=== PATIENT | male | born 1980 | race Two or more races ===

== ENCOUNTER 2017-03-28 19:11 | Inpatient (IN) | payer OTHER ==
[~2017-03-28] VITALS: Ht 175.3 cm; Wt 64.0 kg
--- NOTE | 2017-03-28 20:45 | NUR ---
KNOTTING MACHINE OPERATOR PORTABLE NOTES RECEIVED PATIENT DIRECT ADMIT FROM [facility], TRANSFERRED TO ROOM 105, TOLERATED TRANSFER WELL. SKIN IS INTACT. BREATHING EVEN AND NONLABORED, ON O2 VIA NC @ 2LPM, TOLERATING WELL, FREE FROM ANY S/S OF OF RESPIRATORY DISTRESS. NOTED WITH RIGHT SIDED KEYA-CLOSE BRAND CHEST TUBE, CLAMPED AT THIS TIME. PLACED ON TELEMETRY MONITORING, REVEALING SINUS RHYTHM. IV SITE PATENT AND INTACT, FLUSHED WITH NS, FREE FROM ANY S/S OF INFILTRATION OR PHLEBITIS. PLAN OF CARE DISCUSSED WITH THE PATIENT WHO VERBALIZES UNDERSTANDING. CALL LIGHT LEFT WITHIN EASY REACH, BED IN LOWEST AND LOCKED POSITION.
[2017-03-28] MEDS ORDERED: MORPHINE SULFATE INJ 4 MG/ML DISP.SYRIN ONE (21:34)
[2017-03-28] MEDS: MORPHINE SULFATE INJ 2 MG/ML DISP.SYRIN IV PRN (21:37)
--- NOTE | 2017-03-28 21:42 | NUR ---
RN NOTES MORPHINE 2MG OUT OF STOCK, OVERRIDE PERFORMED BY CHARGE NURSE OG
--- NOTE | 2017-03-28 22:15 | NUR ---
RN NOTES DR BROWN WITH ORDERS TO CONNECT CHEST TUBE TO LOW INTERMITTENT SUCTION. PATIENT NOTED WITH KEYA-CLOSE CHEST TUBE SYSTEM, INADEQUATE SUPPLIES HERE AT [place] TO CONNECT PATIENT TO SUCTION. DR BROWN MADE AWARE, WITH NEW ORDER FOR STAT CXR TO EVALUATE NEED FOR FURTHER CHEST TUBE SUCTION
[2017-03-28] MEDS ORDERED: ZOLPIDEM TARTRATE 5 MG TABLET PO PRN (22:30)
[2017-03-28] MEDS ORDERED: ACETAMINOPHEN 325 MG TABLET PO PRN (22:30)
[2017-03-28] MEDS ORDERED: Z GUARD REMEDY 2 OZ OINT TP PRN (22:30)
--- NOTE | 2017-03-28 23:15 | NUR ---
RN NOTES CXR RESULTS RELAYED TO [facility] [place] RECEIVED. MD ALSO MADE AWARE THAT WHEN PATIENT IS ASLEEP, HIS HR GOES LOW 46BPM. WILL CONTINUE TO CLOSELY MONITOR THE PATIENT
[2017-03-29] VITALS: BP 128/69
[2017-03-29] MEDS ORDERED: MORPHINE SULFATE INJ 4 MG/ML DISP.SYRIN ONE ×2 (01:20→07:06)
[2017-03-29] MEDS: MORPHINE SULFATE INJ 2 MG/ML DISP.SYRIN IV PRN (01:23)
[2017-03-29 04:00] VITALS: BP 102/70
[2017-03-29 04:41] LABS: BASOPHILS % (AUTO) 0.3 % (0.0-2.0); EOSINOPHILS % (AUTO) 0.4 % (0.0-6.0); HEMATOCRIT 47 % (39-51); HEMOGLOBIN 15.7 g/dL (13.5-17.5); MEAN CORPUSCULAR HEMOGLOBIN 31 PG (26.0-33.0); MEAN CORPUSCULAR HGB CONC 34 g/dl (31.0-36.0); MEAN CORPUSCULAR VOLUME 93 fL (80-96); MONOCYTES # (AUTO) 0.5 /CMM (0.1-1.30); MONOCYTES % (AUTO) 6.1 % (2.0-12.0); NEUTROPHILS # (AUTO) 5.4 /CMM (1.8-8.9); NEUTROPHILS % (AUTO) 68.2 % (43.0-81.0); PLATELET COUNT (AUTO) 256 /CMM (150-450); RDW COEFFICIENT OF VARIATION 12.8 (11.5-15.0); RED BLOOD CELL COUNT(AUTO) 4.99 MIL/uL (4.5-6.0); WHITE BLOOD COUNT (AUTO) 7.9 K/uL (4.3-11.0)
[2017-03-29 05:10] LABS: ALBUMIN 3.9 g/dL (3.4-5.0); BILIRUBIN,TOTAL 1.2 mg/dL (0.2-1.0); CALCIUM, SERUM 8.7 mg/dL (8.5-10.1); CREATININE 0.9 mg/dL (0.6-1.3); MAGNESIUM 2.1 mg/dL (1.8-2.4); PHOSPHORUS 3.8 mg/dL (2.5-4.9); POTASSIUM 4.7 mmol/L (3.5-5.1); TOTAL PROTEIN, SERUM 6.9 g/dL (6.4-8.2)
[2017-03-29] MEDS ORDERED: MORPHINE SULFATE INJ 10 MG/ML DISP.SYRIN IV PRN ×2 (07:30→12:00)
--- NOTE | 2017-03-29 07:53 | NUR ---
YARDER PUNCHER NOTE RECEIVED PATIENT IN THE BED, PT IS ALERT AND AWAKE, ORIENTED X 4, NO SOB, ON ROOM AIR, SKIN IS WARM/DRY, NO S/S OF PAIN NOTED, NO CHEST PAIN. PERIPHERAL IV ON THE RIGHT HAND, FLUSHING WELL, IV SITE IS INTACT, NEEDS ATTENDED, KEPT SAFE AND COMFORTABLE, CALL LIGHT WITHIN REACH.
[2017-03-29 08:00] VITALS: BP 103/72
--- NOTE | 2017-03-29 09:07 | NUR ---
RT PT IS AWAKE AND ALERT, PT HAS REFUSED ABG AT THIS TIME. NO SIGNS OF SOB OR RESPIRATORY DISTRESS NOTED. PT STATES THE SOB IS MORE DUE TO PAIN FROM CHEST TUBE. RN NOTIFIED AND AWARE. WILL CONTINUE TO MONITOR.
[2017-03-29] MEDS: HYDROCODONE/APAP 5/325MG 1 EACH TABLET PO PRN ×2 (11:41→12:14)
[2017-03-29 12:00] VITALS: BP 122/71
[2017-03-29] MEDS ORDERED: HYDROMORPHONE INJ 2 MG/ML DISP.SYRIN IV PRN (12:30)
[2017-03-29] MEDS: ONDANSETRON HCL/PF 4 MG/2 ML VIAL IVP PRN (13:09)
[2017-03-29 16:00] VITALS: BP_SYST 119; BP_SYST 126; BP_DIAS 53; BP_DIAS 74
--- NOTE | 2017-03-29 19:13 | NUR ---
BASE FILLER NOTE PATIENT IS IN BED, ALERT/ORIENTED TO NAME, NO S/S OF DISTRESS NOTED, ALL NEEDS ATTENDED, SIDE RAILS UP APPROPRIATE, BED IN LOW POSITION, ALL ORDERS CARRIED OUT APPROPRIATELY, NO NAUSEA/VOMITING NOTED
--- NOTE | 2017-03-29 19:50 | NUR ---
RN NOTES SPOKE TO DR. BROWN AND NOTIFIED HIM THAT PT IS COMPLAINING OF PAIN 8/10 TO RIGHT CHEST. PT HAD A BAD REACTION TO DILAUDID GIVEN EARLIER AND SAYS NORCO IS NOT EFFECTIVE. ORDERED TORADOL 30MG IV X1. ORDERS NOTED AND READ BACK, WILL CARRY OUT.
[2017-03-29 20:00] VITALS: BP 123/70
[2017-03-29] MEDS ORDERED: KETOROLAC TROMETHAMINE INJ 30 MG/ML VIAL IV ONE (20:00)
--- NOTE | 2017-03-29 20:10 | NUR ---
RN NOTES GAVE REPORT TO TREVON BRYAN AND ENDORSED PLAN OF CARE.
--- NOTE | 2017-03-29 20:10 | NUR ---
RN NOTES RECEIVED PT AWAKE ON BED AOX 3 ABLE TO MAKE KNOWN NEEDS. WITH FAMILY AT BEDSIDE. COMPLAINING OF PAIN AT SCALE OF 7/10 SCALE ON HIS RUC WITH KEYA-CLOSE CHEST TUBE. WITH DRESSING CLEAN AND DRY NO LEAKING SHOWS. AFEBRILE. TELE MONITOR REVEALS SB HR 56. IV SITE ON RIGHT WRIST G 20 INTACT AND PATENT. CALL LIGHT KEPT WITHIN EASY REACH AND INSTRUCTED TO USED WHEN NEED ASSISTANCE. KEPT PT CLEAN AND COMFORTABLE IN BED. WILL CONTINUE TO MONITOR.
--- NOTE | 2017-03-29 21:12 | NUR ---
RN NOTES CAME BACK FROM CAT SCAN NO SIGNIFICANT CHANGES.
[2017-03-30] VITALS: BP_SYST 103; BP_SYST 105; BP_DIAS 70; BP_DIAS 79
[2017-03-30] MEDS ORDERED: oxyCODONE/APAP (5/325 MG) 1 UDTAB TABLET ONE ×2 (00:04→07:13)
[2017-03-30] MEDS: oxyCODONE/APAP (5/325 MG) 1 UDTAB TABLET PO PRN ×5 (00:09→20:40)
--- NOTE | 2017-03-30 00:15 | NUR ---
RN NOTES PT COMPLAIN OF PAIN AT HIS CHEST TUBE SITE ON RIGHT CHEST WALL. MD MADE AWARE THAT DILAUDID IS NOT WORKING AND HAD A BAD REACTION TO HIM EARLIER AND TORADOL IS NOT HELPING TO HIS PAIN. WITH NEW ORDER OF PERCOCET 5/325 2 TABS Q6H PRN NOTED AND ACKNOWLEDGE ORDER. PAIN MEDICINE GIVEN ORDERED AND EDUCATE PATIENT REGARDING MEDS
--- NOTE | 2017-03-30 00:30 | NUR ---
RN NOTES CALLED BY PATIENT AND ASKED TO CALL MD TO CHECK HIS KEYA-CLOSE TUBE. DR. BROWN IS ON THE FLOOR AND INFORMED ABOUT PATIENT STATUS AND REQUEST. SEEN AND EXAMINED THE MD EDUCATE PATIENT REGARDING NEW CHEST TUBE. AND TO FOLLOW UP ER MD TO RE -ASSESS AND MANIPULATE OR ADJUST THE TUBE IF NEEDED. PT IS AWAKE NO S/S OF SOB AT THIS TIME. WILL CONTINUE TO MONITOR
--- NOTE | 2017-03-30 01:00 | NUR ---
RN NOTES 0050- NADIA MARKET DEVELOPER FROM ER SEEN AND EXAMINED THE PATIENT KEYA-CLOSE AND MADE AWARE ABOUT THE CONDITION OF THE PATIENT. PT STATED THAT HE CANT EAT WELL BECAUSE HE FEELS NAUSEATED ALL THE TIME WHEN HE EAT . 0100 - CALLED AND INFORMED DR. BROWN THAT ER MARKET DEVELOPER ALREADY EXAMINED THE PATIENT, AND PATIENT IS REQUESTING FOR IVF WITH ORDER OF D5 / ND @ 80 CC/HR AND CXR @ 5AM. NOTED AND ACKNOWLEDGE ORDER.
[2017-03-30] MEDS: IV D5/0.45 NACL 1,000 ML IV PRN ×2 (02:42→12:28)
[2017-03-30 04:00] VITALS: BP 115/77
[2017-03-30 06:44] LABS: BASOPHILS % (AUTO) 0.3 % (0.0-2.0); EOSINOPHILS % (AUTO) 0.6 % (0.0-6.0); HEMATOCRIT 47 % (39-51); LYMPHOCYTES % (AUTO) 26.9 % (20.0-44.0); MEAN CORPUSCULAR HEMOGLOBIN 32 PG (26.0-33.0); MEAN CORPUSCULAR HGB CONC 34 g/dl (31.0-36.0); MEAN CORPUSCULAR VOLUME 94 fL (80-96); MONOCYTES # (AUTO) 0.5 /CMM (0.1-1.30); MONOCYTES % (AUTO) 6.7 % (2.0-12.0); NEUTROPHILS # (AUTO) 4.9 /CMM (1.8-8.9); NEUTROPHILS % (AUTO) 65.5 % (43.0-81.0); PLATELET COUNT (AUTO) 264 /CMM (150-450); RDW COEFFICIENT OF VARIATION 12.7 (11.5-15.0); RED BLOOD CELL COUNT(AUTO) 5.04 MIL/uL (4.5-6.0); WHITE BLOOD COUNT (AUTO) 7.5 K/uL (4.3-11.0)
--- NOTE | 2017-03-30 06:47 | NUR ---
RN NOTES PT ASLEEP AT THIS TIME.TOLERATED PAIN AND PER PT HIS TRYING NOT TO GET TOO MUCH PAIN MEDICINE IF HE CAN. AFEBRILE. VS STABLE. IVF IN THE RIGHT WRIST ONGOING ORDERED TOLERATED WELL. KEYA CLOSE CHEST TUBE INTACT. DENIES ANY CHEST PAIN. REMAINED SB 59. PT IS ABLE TO AMBULATE FOR B/B. ALL NEEDS ATTENDED. WILL ENDORSED TO [facility] FOR CONTINUITY OF CARE.
[2017-03-30 07:01] LABS: CALCIUM, SERUM 8.8 mg/dL (8.5-10.1); CREATININE 0.9 mg/dL (0.6-1.3); POTASSIUM 4.6 mmol/L (3.5-5.1)
--- NOTE | 2017-03-30 07:10 | NUR ---
SUPERVISOR INTERMEDIATES OPENING NOTES RECEIVED PT FROM NIGHTSHIFT NURSE IN STABLE CONDITION. PT IS A/O X4. BREATHING IS EVEN AND UNLABORED AT THIS TIME. PT IS ON 3L VIA NC AND SATING WELL @ 99%. KEYA-CLOSE CHEST TUBE NOTED TO RIGHT CHEST WALL. DRESSING IS CLEAN AND INTACT. PT IS SB ON THE TELE MONITOR WITH A HR OF 59. IV NOTED ON RIGHT WRIST 20G INFUSING D5 1/2 NS @ 80ML/HR. NO REDNESS OR SIGNS OF INFILTRATION NOTED. PT DENIES PAIN AT THIS TIME. BED IN LOW LOCKED POSITION, SIDE RAILS UP X2, CALL LIGHT WITHIN REACH. PT'S FAMILY AT BEDSIDE. WILL CONTINUE TO CLOSELY MONITOR
[2017-03-30 08:00] VITALS: BP 123/79
--- NOTE | 2017-03-30 08:06 | NUR ---
MOLD SHOP SUPERVISOR NOTES DR. ROBLERO FROM RADIOLOGY CALLED TO REPORT THAT THE PT HAD A "VERY LARGE RIGHT SIDED PNEUMOTHORAX" DESPITE HAVING A CHEST TUBE. DRS LIST IS NOT PREPARED AT THIS TIME SO THE CHARGE NURSE SOON WAS NOTIFIED AND STATES THAT SHE WILL INFORM THE COMMERCIAL FOOD INSTRUCTOR EPIC
[2017-03-30 12:00] VITALS: BP 118/75
--- NOTE | 2017-03-30 12:12 | NUR ---
DOORMAKER NOTES PT STATES THAT HIS PAIN MEDICATION IS NOT EFFECTIVE AFTER A FEW HOURS. DR. TERRAZAS WAS MADE AWARE AND GAVE THE ORDER TO CHANGE PT'S PERCOCET FROM Q6HR TO Q4. WILL CARRY OUT ORDER
[2017-03-30 16:00] VITALS: BP 124/77
--- NOTE | 2017-03-30 19:23 | NUR ---
CONCRETE BATCH PLANT OPERATOR CLOSING NOTES PT REMAINS IN STABLE CONDITION. VITAL SIGNS STABLE DURING SHIFT. NO ACUTE CHANGES IN CONDITION DURING SHIFT. PT REMAINS STABLE ON 3L O2 VIA NC. ALL NEEDS WERE MET DURING SHIFT AND ORDERS CARRIED OUT ACCORDINGLY. ALL DUE MEDS GIVEN. WILL ENDORSE TO NIGHTSHIFT NURSE FOR STAR
--- NOTE | 2017-03-30 19:30 | NUR ---
PAPERHANGER SUPERVISOR - INITIAL NOTES PATIENT IN BED. NO S/S OF SOB NOTED. PATIENT COMPLAINS OF PAIN 5/10 AT THIS TIME. INFORMED PATIENT PAIN MEDICATION WILL NOT BE DUE AN HOUR FROM NOW. PATIENT VERBALIZES UNDERSTANDING. CURRENTLY ON SINUS ERICA 50'S TO SINUS RHYTHM 60'S. NO COMPLAINTS OF CHEST PAIN. TRUE-CLOSE CHEST TUBE REMAINS INPLACE. CALL LIGHT IS WITHIN REACH, INSTRUCTED PATIENT TO USE CALL LIGHT WHEN ASSISTANCE IS NEEDED. VERBALIZES UNDERSTANDING.
[2017-03-30 20:00] VITALS: BP 115/76
[2017-03-31] VITALS: BP 103/79
[2017-03-31] MEDS: oxyCODONE/APAP (5/325 MG) 1 UDTAB TABLET PO PRN ×3 (00:14→20:31)
[2017-03-31] MEDS: IV D5/0.45 NACL 1,000 ML IV PRN (00:17)
--- NOTE | 2017-03-31 02:13 | NUR ---
SPOKE TO DR. BROWN AND INFORMED HIM REGARDING PATIENT'S NPO STATUS AND PATIENT ONLY TAKES PERCOCET [address] BROWN ITS OK TO PUT PATIENT ON NPO EXCEPT MEDICATIONS.
[2017-03-31 04:00] VITALS: BP 109/72
--- NOTE | 2017-03-31 06:26 | NUR ---
COMMODITIES MANAGER - CLOSING NOTES PATIENT REMAINS STABLE. NO S/S OF SOB OR ANY DISCOMFORT NOTED. COMPLAINS OF PAIN ON AND OFF. PATIENT IS NPO FOR PROCEDURE AT 1230 AND VERBALIZES UNDERSTANDING. WILL ENDORSE TO MORNING NURSE FOR CONTINUITY OF CARE. Addendum: 03/31/17 at 0630 by MAURIZIO MAGDALENO RN TELE READING OF SINUS ERICA AT 58.
[2017-03-31 08:00] VITALS: BP 123/75
--- NOTE | 2017-03-31 08:00 | NUR ---
TELE1/RN AM SHIFT INITIAL NOTES RECEIVED PT SITTING IN BED, A/O X 4 COMPLAINT OF RIGHT CHEST PAIN RATED 8/10, PT JUST RECEIVED PERCOCET PRN BY PM NURSE. ON ROOM AIR SATURATING @ 100%, LUNG SOUNDS CLEAR. ON TELE WITH SINUS RHYTHM, HR 59. RIGHT CHEST TUBE SITE INTACT AND CLEAN. ON GOING IV INFUSION OF D5 1/2NS @ 80CC/HR, IV SITE PATENT WITH NO S/S OF INFECTION. PT ON NPO STATUS EXCEPT FOR MEDS, SCHEDULED FOR RIGHT LUNG THORACOSCOPY TODAY @ 12:30PM. WILL RE-ASSESS PAIN LEVEL. FRIENDS AND FAMILY MEMBER AT BEDSIDE. CL WITHIN REACHED AND SAFETY MAINTAINED. ON GOING MONITORING.
[2017-03-31 08:35] LABS: BASOPHILS % (AUTO) 0.2 % (0.0-2.0); EOSINOPHILS # (AUTO) 0.1 /CMM (0.0-0.7); EOSINOPHILS % (AUTO) 0.8 % (0.0-6.0); HEMATOCRIT 49 % (39-51); HEMOGLOBIN 16.2 g/dL (13.5-17.5); LYMPHOCYTES # (AUTO) 0.8 /CMM (0.8-4.8); LYMPHOCYTES % (AUTO) 11.8 % (20.0-44.0); MEAN CORPUSCULAR HEMOGLOBIN 31 PG (26.0-33.0); MEAN CORPUSCULAR HGB CONC 33 g/dl (31.0-36.0); MEAN CORPUSCULAR VOLUME 95 fL (80-96); MONOCYTES # (AUTO) 0.3 /CMM (0.1-1.30); MONOCYTES % (AUTO) 4.6 % (2.0-12.0); NEUTROPHILS # (AUTO) 5.8 /CMM (1.8-8.9); NEUTROPHILS % (AUTO) 82.6 % (43.0-81.0); PLATELET COUNT (AUTO) 253 /CMM (150-450); RDW COEFFICIENT OF VARIATION 12.8 (11.5-15.0); RED BLOOD CELL COUNT(AUTO) 5.16 MIL/uL (4.5-6.0)
[2017-03-31 08:51] LABS: INR 1.01 (0.87-1.13); PROTHROMBIN TIME 10.5 SECS (9.5-12.7)
[2017-03-31 10:04] LABS: CALCIUM, SERUM 8.9 mg/dL (8.5-10.1); CREATININE 0.9 mg/dL (0.6-1.3); PHOSPHORUS 3.1 mg/dL (2.5-4.9); POTASSIUM 4.7 mmol/L (3.5-5.1)
--- NOTE | 2017-03-31 10:45 | NUR ---
TELE1/RN MORPHINE ORDER NOTIFIED DR. TERRAZAS PT NEEDS OTHER PAIN MEDICATIONS. VERBAL ORDER RECEIVED TO START PT ON MORPHINE 1MG IVP Q3HRS. ORDER NOTED AND CARRIED OUT. PER PT HE HAS SEVERE REACTION TO DILAUDID.
[2017-03-31] MEDS: MORPHINE SULFATE INJ 2 MG/ML DISP.SYRIN IVP PRN ×3 (11:02→20:39)
--- NOTE | 2017-03-31 11:17 | NUR ---
TELE1/RN ROUNDS - DRs. LUGO AND MK PT SEEN & EXAMINED BY DRs. LUGO AND MK. MDs MADE AWARE THAT PT IN PAIN AND HAVE HARD TIME BREATHING WHEN LYING FLAT. NO NEW ORDERS RECEIVED AT THIS TIME. MONITORING.
[2017-03-31 12:00] VITALS: BP 129/79
[2017-03-31] MEDS ORDERED: ANESTHESIA TRAY IN PYXIS 1 EA TRAY MC ONE (12:13)
--- NOTE | 2017-03-31 12:15 | NUR ---
TELE1/RN OFF TO OR PT LEFT TELE1 UNIT VIA BED IN STABLE CONDITION TO OR FOR RIGHT LUNG THORACOSCOPY.
[2017-03-31] MEDS ORDERED: MORPHINE SULFATE/PF 10 MG/10ML (1MG/ML) AMPUL ONE (12:22)
[2017-03-31] MEDS ORDERED: MIDAZOLAM HCL 2 MG/2ML VIAL ONE (12:23)
[2017-03-31] MEDS ORDERED: BUPIVACAINE MPF INJ 0.75% W/EP 30 ML VIAL ONE (12:34)
[2017-03-31] MEDS ORDERED: MORPHINE SULFATE INJ 10 MG/ML DISP.SYRIN ONE ×2 (14:08)
--- NOTE | 2017-03-31 15:00 | NUR ---
TD/RN BACK ON FLOOR - S/P THORACOSCOPY PT ARRIVED VIA BED. REPORT RECEIVED FROM NURSE ROSAS. PT ARRIVED WITH RIGHT CHEST TUBE ON LOW SUCTIONING, NO OUTPUT NOTED. OR ORDERS FAXED TO PHARMACY. MONITORING.
[2017-03-31 16:00] VITALS: BP 135/75
[2017-03-31] MEDS: KETOROLAC TROMETHAMINE INJ 30 MG/ML VIAL IV SCH ×2 (17:18→23:14)
--- NOTE | 2017-03-31 17:30 | NUR ---
TD/RN AFTERNOON ROUNDS NO ACUTE CHANGE OF CONDITION. PT WITH FAMILY MEMBERS AT BEDSIDE.
[2017-03-31] MEDS: IV D5/0.45 NACL W/20 MEQ KCL 1L IV PRN ×2 (17:35)
--- NOTE | 2017-03-31 19:28 | NUR ---
TD/RN AM SHIFT END NOTES ALL NEEDS MET. NO ACUTE CHANGE OF CONDITION SINCE PT CAME BACK FROM OR. RIGHT CHEST TUBE INTACT ON LOW CONTINUOUS SUCTIONING AND ON GOING IV INFUSION OF NS WITH 20MEQ KCL @ 60CC/HR, IV SITE PATENT WITH NO S/S OF INFECTION. PT ENDORSED TO PM NURSE TO CONTINUE CARE. CL WITHIN REACHED AND SAFETY MAINTAINED.
[2017-03-31 20:00] VITALS: BP 113/76
[2017-03-31] MEDS: FENTANYL PF 100MCG/2ML AMPUL IV PRN ×2 (21:50→23:14)
--- NOTE | 2017-03-31 21:50 | NUR ---
APPLE THINNER DF PT ADMIN FENTANYL 30MCG 0.6ML PRN SEVERE PAIN 10/ 2ND HAD VATS SGY WITH RIGHT SIDED CHEST TUBE. PT C/O PAIN 10. BP OF 114/77, O2 SAT OF 98%. NSR ON MONITOR RATE OF 63BPM. CHEST TUBE ASSESSED WNL TO WALL SUCTION @20.VSS.NAD NOTED.
[2017-03-31] MEDS: ONDANSETRON HCL/PF 4 MG/2 ML VIAL IVP PRN (22:02)
[2017-04-01] VITALS: BP 109/59
[2017-04-01] MEDS: oxyCODONE/APAP (5/325 MG) 1 UDTAB TABLET PO PRN ×3 (00:49→21:14)
[2017-04-01] MEDS: MORPHINE SULFATE INJ 2 MG/ML DISP.SYRIN IVP PRN ×3 (00:50→08:23)
[2017-04-01] MEDS: FENTANYL PF 100MCG/2ML AMPUL IV PRN (02:11)
--- NOTE | 2017-04-01 02:20 | NUR ---
SENIOR PROCESS ANALYST DF PT ADMIN FENTANYL 30MCG 0.6ML PRN SEVERE PAIN 02/07 2ND HAD VATS SGY WITH RIGHT SIDED CHEST TUBE. PT C/O PAIN 02/07. BP OF 111/74, O2 SAT OF 98%. NSR ON MONITOR RATE OF 67BPM. CHEST TUBE ASSESSED WNL TO WALL SUCTION @20.VSS.NAD NOTED. PT VOIDED X1 POST OP. PT ATTEMPTING TO VOID IN URINAL. I WILL CHECK PT WITH BLADDER SCANNER.AWAITING BLADDER SCANNER. Addendum: 04/01/17 at 0237 by CLEMENT ESTRADA RN PT VOIDED 350 ML. BLADDER SCANNER DONE RESIDUAL 175ML ENCOURAGED PT TO HAVE PO FLUID INTAKE
[2017-04-01 04:00] VITALS: BP_SYST 103; BP_DIAS 69; BP_DIAS 77
--- NOTE | 2017-04-01 04:34 | NUR ---
GRADER MARKER DF PT C/O OF PAIN TO RIGHT CHEST TUBE SITE PT S/P VATS SGY POST OP DAY#2. PT A/OX4, BP OF 115/77 NSR RATE OF 65 BPM. PT REQUESTING MORPHINE 1 MG IVP. PT LAST RECEIVED FENTANYL 2 HOURS AGO. PT WITH ONGOING POST OP PAIN LEVELS OF 10/10 AND DECREASES TO 2-3/10 WITH MEDICATION. I WILL MEDICATE PT WITH MORPHINE 1 MG IVP. VSS.NAD NOTED. TOLERATING PAIN MGMT. SEE EMAR FOR MEDICATION ADMIN INFO. CHEST TUBE ASSESSED FREQUENTLY NO AIR LEAK NOTED, MILD TO MOD SEROSAINGOUS DRAINAGE NOTED. LUNG SOUNDS TO RIGHT COURSE,DIMINISHED WITH CTA ON LEFT LOBES. PT ON O2 2LPM N/C.
[2017-04-01] MEDS: KETOROLAC TROMETHAMINE INJ 30 MG/ML VIAL IV SCH ×5 (06:47→23:58)
[2017-04-01 07:55] LABS: BASOPHILS % (AUTO) 0.4 % (0.0-2.0); EOSINOPHILS # (AUTO) 0.2 /CMM (0.0-0.7); EOSINOPHILS % (AUTO) 2.4 % (0.0-6.0); HEMATOCRIT 49 % (39-51); LYMPHOCYTES # (AUTO) 1.7 /CMM (0.8-4.8); LYMPHOCYTES % (AUTO) 20.7 % (20.0-44.0); MEAN CORPUSCULAR HEMOGLOBIN 32 PG (26.0-33.0); MEAN CORPUSCULAR HGB CONC 33 g/dl (31.0-36.0); MEAN CORPUSCULAR VOLUME 96 fL (80-96); MONOCYTES # (AUTO) 0.8 /CMM (0.1-1.30); MONOCYTES % (AUTO) 9.6 % (2.0-12.0); NEUTROPHILS # (AUTO) 5.6 /CMM (1.8-8.9); NEUTROPHILS % (AUTO) 66.9 % (43.0-81.0); PLATELET COUNT (AUTO) 226 /CMM (150-450); RDW COEFFICIENT OF VARIATION 12.4 (11.5-15.0); RED BLOOD CELL COUNT(AUTO) 5.05 MIL/uL (4.5-6.0); WHITE BLOOD COUNT (AUTO) 8.3 K/uL (4.3-11.0)
[2017-04-01 08:00] VITALS: BP 103/72
--- NOTE | 2017-04-01 08:00 | NUR ---
VENITA RN NOTE PATENT IN BED , ALL NEEDS ATTENDED, CHEST X RAY DONE ORDERED ON RT SIDE CHEST TUBE IN PLACE NO SUCTION -20 , ON IVF ORDERED WILL CONT TO MONITOR CLOSELY NO SOB NOTED AT THIS TIME
[2017-04-01 08:10] LABS: CALCIUM, SERUM 8.7 mg/dL (8.5-10.1); CREATININE 0.9 mg/dL (0.6-1.3); POTASSIUM 4.8 mmol/L (3.5-5.1)
[2017-04-01] MEDS: IV D5/0.45 NACL W/20 MEQ KCL 1L IV PRN ×2 (09:47)
[2017-04-01] MEDS ORDERED: FENTANYL PF 100MCG/2ML AMPUL IV PRN ×3 (10:59→11:30)
[2017-04-01] MEDS ORDERED: MORPHINE SULFATE INJ 2 MG/ML DISP.SYRIN IV ONE ×3 (11:00→11:30)
--- NOTE | 2017-04-01 11:20 | NUR ---
VENITA LESTER NOTE SEEN BY DR YOUNGBLOOD , HE PLACED CHAT TUBE TO WATER SEAL , AWARE THAT PATIENT C]O SEVERE PAIN ,S]P SURGERY RT CHEST TUBE PLACEMENT, WILL MONITOR CLOSELY Addendum: 04/01/17 at 1251 by LOGAN ANN RN 1120 CORRECTION SPELLING CHEST TUBE
[2017-04-01] MEDS ORDERED: MORPHINE SULFATE INJ 2 MG/ML DISP.SYRIN IV PRN (11:30)
--- NOTE | 2017-04-01 11:35 | NUR ---
VENITA LESTER NOTE C\O CHEST PAIN AFTER DOCTOR ATCAROLINE CHANGE CHEST TUBE TO WATER SEAL ,BP 127/76 HR 57 ,SAT 98%. ORDERED STATED CHEST XRAY LIDODERM AND FENTANYL 50 MCG Q1PRN Addendum: 04/01/17 at 1146 by LOGAN ANN RN CHEST X RAY DONE ORDERED BACK TO WALL SUCTION
[2017-04-01] MEDS: LIDOCAINE 5% (PATCH) 1 EA PATCH TP SCH (11:48)
[2017-04-01 12:00] VITALS: BP 120/79
--- NOTE | 2017-04-01 12:00 | NUR ---
ORACLE ENDECA CONSULTANT NOTE SEEN BY DR TERRAZAS AWARE THAT PHARMACY HAS SHORTAGE WITH MORPHINE , CONT MEDS ORDERED BY DR YOUNGBLOOD , ALSO AWARE THAT C\O CHEST PAIN AND CHEST X RAY DONE ORDERED BY DR YOUNGBLOOD ,NOTIFIED THAT HAS POOR APPETITE AND C\O NAUSEA WHEN EAT Addendum: 04/01/17 at 1207 by LOGAN ANN RN DR TERRAZAS NOTIFIED ABOUT CHEST XRAY FROM THIS MORNING , NO NEW ORDER AT THIS TIME
--- NOTE | 2017-04-01 12:32 | NUR ---
TANNERY WORKER NOTE CHEST X MALIK RESULT REPORTED TO DR TERRAZAS NO CHANGE SINCE PREVIOUS CHEST X RAY , NO NEW ORDER GIVEN AT THIS TIME
--- NOTE | 2017-04-01 14:20 | NUR ---
PRODUCTION LINE TECHNICIAN NOTE SEEN BY DR ARMENTA AWARE OF CHEST X RAY RESULT , NO NEW GIVEN AT THIS TIME Addendum: 04/01/17 at 1448 by LOGAN ANN RN NORCO PO GIVEN ORDERED BP127/78 SAT 98% WILL CONT TO MONITOR CLOSELY
[2017-04-01] MEDS: HYDROCODONE/APAP 5/325MG 1 EACH TABLET PO PRN (14:45)
[2017-04-01 16:00] VITALS: BP 117/74
--- NOTE | 2017-04-01 16:58 | NUR ---
television repairer note fentanyl 50 mcg ivp given as ordered bp 114/76 sat 98% hr 61, will monitor closely pain level 8/10 on rt side of chest
[2017-04-01] MEDS: ONDANSETRON HCL/PF 4 MG/2 ML VIAL IVP PRN (17:33)
--- NOTE | 2017-04-01 17:46 | NUR ---
LAUNCH CHECK OUT NOTE C\O THROAT TIGHTNESS ,SAT 98%, PLACED ON 6L SIMPLE MASK ,ALSO C\O NAUSEA ZOFRAN GIVEN
--- NOTE | 2017-04-01 17:48 | NUR ---
PSYCHOLOGICAL OPERATIONS OFFICER NOTE SPOKE WITH DR APODACA PAIN DOCTOR, NOTIFIED PATIENT C\O THROAT TIGHTNESS NOTED NOW , FENTANYL 50 MCH IVP GIVEN AT 1652 PLACED ON FACE MASK 6L SAT 98%, STATED THAT I WILL CHECK HIM SOON PER DR TERRAZAS OK TO RESUME IVF AT THSI TIME , AWARE THAT PATIENT DID NOT EAT LUNCH
[2017-04-01] MEDS ORDERED: Potassium Chloride 20 MEQ in IV D5/0.45 NACL 1,000 ML IV PRN (18:00)
[2017-04-01] MEDS ORDERED: ALBUTEROL FS 2.5 MG/0.5 ML VIAL.NEB NEB SCH (18:00)
--- NOTE | 2017-04-01 18:24 | NUR ---
MATTING PRESS TENDER NOTE SPOKE WITH DR VALENTINE PAIN MANAGEMENT DOCTOR ,NOTIFIED THAT FENTANYL WAS GIVEN 1651 AND TORADOL SCHEDULED AT 1800 ,STATED OK TO GIVE Addendum: 04/01/17 at 1827 by LOGAN ANN RN CALLED RT TO GIVE BREATHING TX ORDERED, WILL F\U
--- NOTE | 2017-04-01 18:35 | NUR ---
ULTRASOUND TESTER NOTE TORADOL WAS RESCHEDULED BY DR VALENTINE PAIN DOCTOR AT 1830 WILL F\U
--- NOTE | 2017-04-01 18:43 | NUR ---
APPLICATIONS SYSTEMS ENGINEER NOTE RT AT BEDSIDE OFFERED BREATHING TX, STATED THAT FEEL BETTER AT THESE TIME AND REFUSED TX ,WILL CONT TO GIVE LATTER ON
--- NOTE | 2017-04-01 19:25 | NUR ---
VENITA/GRANITE INSTALLER WHEN IN TO SEE PT WITH END SHIFT NURSE, PT APPEARED LETHARGIC BUT AROUSALS TO NAME. BLOOD PRESSURE WAS GOOD, AT 136/82. PT IS CURRENTLY ON ROOM AIR WITH SATURATION AT 95-96% DESPITE HAVING NO OXYGEN ON AND COMPLAINED ABOUT SHORTNESS OF BREATH. WILL CONTINUE TO MONITOR THIS PT AND OXYGEN LEVEL AND PAIN LEVEL.
[2017-04-01 20:00] VITALS: BP 136/82
--- NOTE | 2017-04-01 21:30 | NUR ---
VENITA/DIAMOND EXPERT PT WAS GIVEN 2 TABS PERCOCET FOR BREAK THROUGH PAIN, DUE TO S/P THORACOTOMY FROM03/31/17. PT HAS NOT HAD ADEQUATE PAIN MGMT TODAY. PAIN LEVEL IS RATED AT 9/10 TO THE CHEAT TUBE SITE. CALL LIGHT WITHIN REACH. WILL CONTINUE TO MONITOR THE PAIN LEVEL.
[2017-04-02] VITALS: BP_SYST 136; BP_SYST 99; BP_DIAS 65; BP_DIAS 82
--- NOTE | 2017-04-02 00:15 | NUR ---
VENITA/REEL TENDER PT'S PAIN LEVEL IS MUCH MORE MANAGEABLE, TORADOL 30MG IS SCHEDULED AND WAS GIVEN BY RN TO CONTINUE TO MAKE SURE PAIN LEVEL IS WITHIN A NORMAL RANGE SO THAT PT CAN PROGRESS TOWARDS GOALS AND ULTIMATELY BE DISCHARGE. CALL LIGHT WITHIN REACH WITH NO ACUTE DISTRESS SEEN. PT APPEARS COMFORTABLE.
--- NOTE | 2017-04-02 02:09 | NUR ---
VENITA/EKG TECHNICIAN PT APPEARS TO BE RESTING COMFORTABLE, SATURATION IS 96-97% ON ROOM AIR. NO ACUTE DISTRESS SEEN AND NO SHORTNESS OF BREATH SEEN. CALL LIGHT WITHIN REACH.
--- NOTE | 2017-04-02 03:20 | NUR ---
VENITA/OUTREACH REP PT WAS GIVEN 2 TABS PERCOCET FOR BREAK THROUGH PAIN, DUE TO S/P THORACOTOMY FROM03/31/17. PT'S PAIN LEVEL IS RATED AT 9/10 TO THE CHEAT TUBE SITE. CALL LIGHT WITHIN REACH. WILL CONTINUE TO MONITOR THE PAIN LEVEL.
[2017-04-02] MEDS: oxyCODONE/APAP (5/325 MG) 1 UDTAB TABLET PO PRN ×5 (03:22→22:43)
[2017-04-02 04:00] VITALS: BP 108/73
[2017-04-02] MEDS: KETOROLAC TROMETHAMINE INJ 30 MG/ML VIAL IV SCH ×3 (06:13→18:23)
--- NOTE | 2017-04-02 06:35 | NUR ---
VENITA/EMOTIONAL SUPPORT TEACHER PT'S PAIN LEVEL IS MUCH MORE MANAGEABLE, TORADOL 30MG IS SCHEDULED AND WAS GIVEN BY RN TO CONTINUE TO MAKE SURE PAIN LEVEL IS WITHIN A NORMAL RANGE SO THAT PT CAN PROGRESS TOWARDS GOALS AND ULTIMATELY BE DISCHARGE. CALL LIGHT WITHIN REACH WITH NO ACUTE DISTRESS SEEN. PT APPEARS COMFORTABLE.
[2017-04-02 07:14] LABS: BASOPHILS % (AUTO) 0.3 % (0.0-2.0); EOSINOPHILS # (AUTO) 0.2 /CMM (0.0-0.7); EOSINOPHILS % (AUTO) 2.5 % (0.0-6.0); HEMATOCRIT 45 % (39-51); HEMOGLOBIN 15.3 g/dL (13.5-17.5); LYMPHOCYTES # (AUTO) 1.1 /CMM (0.8-4.8); LYMPHOCYTES % (AUTO) 11.8 % (20.0-44.0); MEAN CORPUSCULAR HEMOGLOBIN 32 PG (26.0-33.0); MEAN CORPUSCULAR HGB CONC 34 g/dl (31.0-36.0); MEAN CORPUSCULAR VOLUME 94 fL (80-96); MONOCYTES # (AUTO) 0.6 /CMM (0.1-1.30); MONOCYTES % (AUTO) 6.8 % (2.0-12.0); NEUTROPHILS # (AUTO) 7.2 /CMM (1.8-8.9); NEUTROPHILS % (AUTO) 78.6 % (43.0-81.0); PLATELET COUNT (AUTO) 233 /CMM (150-450); RDW COEFFICIENT OF VARIATION 12.2 (11.5-15.0); RED BLOOD CELL COUNT(AUTO) 4.84 MIL/uL (4.5-6.0); WHITE BLOOD COUNT (AUTO) 9.1 K/uL (4.3-11.0)
[2017-04-02 07:42] LABS: CALCIUM, SERUM 8.8 mg/dL (8.5-10.1); CREATININE 0.9 mg/dL (0.6-1.3); POTASSIUM 4.9 mmol/L (3.5-5.1)
[2017-04-02 08:00] VITALS: BP 108/73
[2017-04-02] MEDS ORDERED: BOOST PLUS FOOD-VANILLA 237 ML BOX PO SCH (08:00)
--- NOTE | 2017-04-02 08:00 | NUR ---
Received 36 year old male patient with dx of right thoracotomy, right upper lobe wedge resection and right pleural chest tube in bed. Patient alert and oriented x 4. Monitor shows sinus bradycardia at 53 bpm. Pulses are palpable. IV in right wrist infusing D5 1/2 NS + 20 meq kcl at 60 cc/hour. Right pleural chest tube to water seal draining serosanguinous fluid. Patient on regular diet but has poor appetite. Able to use urinal to void. Skin is warm and dry. Patient has been having pain issues from chest tube placement.
--- NOTE | 2017-04-02 08:15 | NUR ---
RN NOTE Chest tube was removed by MD. Patient given percocet 2 tabs early per MD request. Lidocaine patch also applied early. Patient in severe pain.
[2017-04-02] MEDS: LIDOCAINE 5% (PATCH) 1 EA PATCH TP SCH (08:19)
--- NOTE | 2017-04-02 09:20 | NUR ---
RN NOTE Chest x-ray was done after removal of chest tube
[2017-04-02 16:00] VITALS: BP 108/68
--- NOTE | 2017-04-02 17:00 | NUR ---
Patient still has complaints of pain. Pain meds have been given throughout shift. Patient did sleep for several hours today and he also sat on the side of the bed several times. Patient was given an incentive spirometer today and was taught how to use it. Patient demonstrated he was able to do it correctly. I told him to do it 10 times per hour taking slow inhalations each time.
[2017-04-02] MEDS: MAGNESIUM HYDROXIDE 30 ML UDC PO PRN (17:55)
[2017-04-02 20:00] VITALS: BP 107/68
[2017-04-02] MEDS: ONDANSETRON HCL/PF 4 MG/2 ML VIAL IVP PRN (21:39)
[2017-04-03] MEDS: KETOROLAC TROMETHAMINE INJ 30 MG/ML VIAL IV SCH ×4 (00:30→17:44)
[2017-04-03 04:00] VITALS: BP 108/73
[2017-04-03] MEDS: oxyCODONE/APAP (5/325 MG) 1 UDTAB TABLET PO PRN ×3 (06:56→19:57)
[2017-04-03] MEDS: MAGNESIUM HYDROXIDE 30 ML UDC PO PRN (06:56)
[2017-04-03 07:30] LABS: BASOPHILS % (AUTO) 0.3 % (0.0-2.0); EOSINOPHILS # (AUTO) 0.3 /CMM (0.0-0.7); EOSINOPHILS % (AUTO) 2.9 % (0.0-6.0); HEMATOCRIT 45 % (39-51); HEMOGLOBIN 15.2 g/dL (13.5-17.5); LYMPHOCYTES % (AUTO) 9.6 % (20.0-44.0); MEAN CORPUSCULAR HEMOGLOBIN 32 PG (26.0-33.0); MEAN CORPUSCULAR HGB CONC 34 g/dl (31.0-36.0); MEAN CORPUSCULAR VOLUME 93 fL (80-96); MONOCYTES # (AUTO) 0.4 /CMM (0.1-1.30); MONOCYTES % (AUTO) 4.3 % (2.0-12.0); NEUTROPHILS # (AUTO) 8.4 /CMM (1.8-8.9); NEUTROPHILS % (AUTO) 82.9 % (43.0-81.0); PLATELET COUNT (AUTO) 223 /CMM (150-450); RDW COEFFICIENT OF VARIATION 12.5 (11.5-15.0); RED BLOOD CELL COUNT(AUTO) 4.77 MIL/uL (4.5-6.0); WHITE BLOOD COUNT (AUTO) 10.1 K/uL (4.3-11.0)
[2017-04-03 07:53] LABS: CALCIUM, SERUM 9.2 mg/dL (8.5-10.1); CREATININE 0.8 mg/dL (0.6-1.3)
[2017-04-03] MEDS: BOOST PLUS FOOD-VANILLA 237 ML BOX PO SCH ×3 (09:15→17:49)
[2017-04-03 10:09] LABS: EOSINOPHILS % (MANUAL) 3 % (0-4); LYMPHOCYTES % (MANUAL) 10 % (16-48); MONOCYTES % (MANUAL) 3 % (0-11.0); NEUTROPHILS % (MANUAL) 84 (42-76)
[2017-04-03] MEDS: LIDOCAINE 5% (PATCH) 1 EA PATCH TP SCH (10:31)
[2017-04-03 16:00] VITALS: BP 113/76
[2017-04-03] MEDS: MAG HYDROX/AL HYDROX/SIMETH 30 ML UDC PO PRN (19:40)
[2017-04-03 20:00] VITALS: BP 116/87
[2017-04-04] MEDS: KETOROLAC TROMETHAMINE INJ 30 MG/ML VIAL IV SCH ×3 (01:15→11:39)
[2017-04-04 04:29] VITALS: BP 108/72
[2017-04-04] MEDS: MAG HYDROX/AL HYDROX/SIMETH 30 ML UDC PO PRN (07:07)
--- NOTE | 2017-04-04 07:44 | NUR ---
RN INITAL NOTE RECEIVED PT IN BED COMPLAINING OF PAIN RIGHT SIDED DUE TO PNEUMOTHORAX AND S/P CHEST TUBE , GIRL FRIEND AT BEDSIDE . L HAND# 22 G INTACT PATENT AND INTACT W/ NO S/S OF INFECTION/INFILTRATION NOTED. CALL LIGHT W/ REACH. ALL NEEDS MEET AND ATTENDED. WILL CONTINUE TO MONITOR THROUGHOUT THE DAY.
[2017-04-04 08:00] VITALS: BP 109/72
[2017-04-04] MEDS: oxyCODONE/APAP (5/325 MG) 1 UDTAB TABLET PO PRN (08:49)
[2017-04-04] MEDS: BOOST PLUS FOOD-VANILLA 237 ML BOX PO SCH (08:51)
[2017-04-04] MEDS: LIDOCAINE 5% (PATCH) 1 EA PATCH TP SCH (08:51)
--- NOTE | 2017-04-04 10:06 | NUR ---
RN NOTE PATIENT DISCHARGE PAPER WORK REVIEWED WITH PATIENT AND GIRLFRIEND DRESSING CHANGE PERFORMED PATIENT COMPLAINED OF MILD PAIN. PATIENT IN STABLE CONDITION AT THIS TIME RN WILL CONTINUE TO FOLLOW.
--- NOTE | 2017-04-04 10:27 | NUR ---
RN NOTE PATIENT REFUSED LABS X2 , PATIETN STATES HE IS BEING DISCHARGED NO NEED FOR LABS , RN NOTIFIED CHARGE NURSE , RN WILL CONTINUE TO FOLLOW
== END 2017-04-04 14:34 | disposition home health service (06) | DRG 163 ==
LOC: TELE1 20:42 → TELE-TD 03-31 14:19 → TELE1 04-01 11:19 → MEDSG1 04-02 08:58
PROVIDERS: ADMIT Internal Medicine; ATTEND Internal Medicine
PROC: 0BQC4ZZ Repair Right Upper Lung Lobe, Percutaneous Endoscopic Approach (ICD-10-PCS; principal; 2017-03-31 13:00)
PROC: 0BBC4ZZ Excision of Right Upper Lung Lobe, Percutaneous Endoscopic Approach (ICD-10-PCS; principal; 2017-03-31 13:00)
PROC: 0W9940Z Drainage of Right Pleural Cavity with Drainage Device, Percutaneous Endoscopic Approach (ICD-10-PCS; principal; 2017-03-31 13:00)
DX: J93.83 Other pneumothorax (principal); J96.00 Acute respiratory failure, unspecified whether with hypoxia or hypercapnia; F12.90 Cannabis use, unspecified, uncomplicated; F17.200 Nicotine dependence, unspecified, uncomplicated; F41.9 Anxiety disorder, unspecified; J45.909 Unspecified asthma, uncomplicated; Z82.49 Family history of ischemic heart disease and other diseases of the circulatory system; Z80.9 Family history of malignant neoplasm, unspecified
CPT/HCPCS: 36415; 71010-TC; 71250-TC; 80048-TC; 80053-TC; 80061-TC; 82962-TC; 83735-TC; 84100-TC; 84484-TC; 85025-TC; 85610-TC; 85652-TC; 85730-TC; 86850-TC; 87081-TC; J1170; J1885; J2250; J2270; J2274; J2405; J3010; J3480; J3490; Z7610

== ENCOUNTER 2017-04-09 18:31 | Emergency (ER) | payer OTHER ==
[~2017-04-09] VITALS: Ht 170.2 cm; Wt 61.2 kg
--- NOTE | 2017-04-09 19:05 | NUR ---
To bed 1 a 36 yo male patient bibself c/o chest pain that radiates to the shoulder pain with sob since 04/04/17 s/p vats procedure for pneumothorax. patient is aaox4, nad noted. vss. nondiaphoretic. placed on the monitor. gowned. comfort measures rendered. Accessories Repairer Marsii at bedside to evaluate patient.
[2017-04-09] MEDS ORDERED: MORPHINE SULFATE INJ 2 MG/ML DISP.SYRIN IV ONE (19:30)
[2017-04-09] MEDS ORDERED: IV NS 0.9% 1,000 ML BAG IV ONE (19:30)
[2017-04-09] MEDS ORDERED: ONDANSETRON HCL/PF 4 MG/2 ML VIAL IVP ONE (19:30)
--- NOTE | 2017-04-09 19:35 | NUR ---
STARTED A SALINE LOCK ON THE [id number], BLOOD DRAWN AND SENT TO LAB.
[2017-04-09] MEDS ORDERED: MORPHINE SULFATE INJ 4 MG/ML DISP.SYRIN ONE (19:38)
[2017-04-09] MEDS ORDERED: ONDANSETRON HCL/PF 4 MG/2 ML VIAL ONE (19:38)
--- NOTE | 2017-04-09 19:45 | NUR ---
MEDICATED PATIENT ORDERED BY JAZZY MATTSON.
[2017-04-09 20:03] LABS: CALCIUM, SERUM 9.2 mg/dL (8.5-10.1); CARBON DIOXIDE 30 mmol/L (21-32); CHLORIDE 103 mmol/L (98-107); GLUCOSE 154 mg/dL (74-106); POTASSIUM 4.1 mmol/L (3.5-5.1); SODIUM SERUM 141 mmol/L (136-145); UREA NITROGEN, BLOOD 11 mg/dL (7-18)
[2017-04-09 20:11] LABS: BASOPHILS % (AUTO) 0.5 % (0.0-2.0); EOSINOPHILS # (AUTO) 0.1 /CMM (0.0-0.7); EOSINOPHILS % (AUTO) 1.5 % (0.0-6.0); HEMATOCRIT 45 % (39-51); HEMOGLOBIN 15.5 g/dL (13.5-17.5); LYMPHOCYTES # (AUTO) 1.4 /CMM (0.8-4.8); LYMPHOCYTES % (AUTO) 15.5 % (20.0-44.0); MEAN CORPUSCULAR HEMOGLOBIN 32 PG (26.0-33.0); MEAN CORPUSCULAR HGB CONC 34 g/dl (31.0-36.0); MEAN CORPUSCULAR VOLUME 92 fL (80-96); MONOCYTES # (AUTO) 0.5 /CMM (0.1-1.30); MONOCYTES % (AUTO) 5.7 % (2.0-12.0); NEUTROPHILS # (AUTO) 6.9 /CMM (1.8-8.9); NEUTROPHILS % (AUTO) 76.8 % (43.0-81.0); PLATELET COUNT (AUTO) 433 /CMM (150-450); RDW COEFFICIENT OF VARIATION 11.7 (11.5-15.0); RED BLOOD CELL COUNT(AUTO) 4.91 MIL/uL (4.5-6.0); WHITE BLOOD COUNT (AUTO) 8.9 K/uL (4.3-11.0)
[2017-04-09 20:12] LABS: TROPONIN I < 0.017 ng/mL (0.00-0.056)
[2017-04-09 21:00] LABS: INR 0.93 (0.87-1.13); PROTHROMBIN TIME 9.7 SECS (9.5-12.7)
[2017-04-09] MEDS ORDERED: NAPROXEN 500 MG TABLET PO ONE (22:00)
[2017-04-09] MEDS ORDERED: oxyCODONE/APAP (5/325 MG) 1 UDTAB TABLET PO ONE (22:00)
[2017-04-09] MEDS ORDERED: IV NS 0.9% 250 ML IV ONE (22:09)
[2017-04-09] MEDS ORDERED: IOHEXOL-350 100 ML VIAL IV ONE (22:09)
[2017-04-09] MEDS ORDERED: oxyCODONE/APAP (5/325 MG) 1 UDTAB TABLET ONE (22:15)
[2017-04-09] MEDS ORDERED: NAPROXEN 250 MG TABLET ONE (22:15)
--- NOTE | 2017-04-09 22:20 | NUR ---
patient taken to radiology.
--- NOTE | 2017-04-09 23:14 | NUR ---
IV removed. Catheter intact and site benign. Pressure and 4x4 applied to site. No bleeding noted. Patient discharged to home in stable condition. Written and verbal after care instructions given. Patient verbalizes understanding of instruction. Patient is ambulatory with steady gait, Instructed not to drive. No further complaints. Nad on dc.
[2017-04-09 23:15] VITALS: BP 122/70
== END 2017-04-09 23:15 | disposition home or self-care (01) ==
LOC: ER 18:40
DX: G89.18 Other acute postprocedural pain (principal); Z88.6 Allergy status to analgesic agent
CPT/HCPCS: 36415; 71010; 71275; 80048; 84484; 85025; 85378; 85730; 93005; 96361; 96374; 96375; 99285; A4606; J2270; J2405; J7030; J7050; Q9967; Z7610